=== PATIENT | female | born 1965 | race Two or more races ===

== ENCOUNTER 2022-07-12 09:35 | Day surgery (SDC) | payer OTHER ==
[~2022-07-12] VITALS: Ht 149.9 cm; Wt 113.0 kg
[~2022-07-12 09:35] MED LIST: LEVOTHYROXINE25 MCG PO; TAZTIA XT120 MG PO
[2022-07-12] MEDS ORDERED: PERCOCET 5-3251 EACH PO (12:07)
[2022-07-12] MEDS ORDERED: RECTICARE30 GM TOP (12:07)
== END 2022-07-12 15:30 | disposition home or self-care (01) ==
LOC: CIR.AMB 09:35 → ER 09:35 → SURG 09:52 → ER 09:52 → EDSTATUS 13:30 → O/R 15:17 → SURG 15:17 → O/R 15:30 → CIR.AMB 15:30
PROVIDERS: ATTEND Emergency Medicine
DX: K64.1 Second degree hemorrhoids (principal); Z20.822 Contact with and (suspected) exposure to COVID-19; Z88.6 Allergy status to analgesic agent; E03.9 Hypothyroidism, unspecified